=== PATIENT | female | born 1980 | race Hispanic/Latino ===

== ENCOUNTER → 2019-09-15 | Outpatient (CLI) | payer OTHER ==
[~2019-09-15] MED LIST: COLA100C5 PO; IBUP-1114 PO; VITA500079 PO; ZOLO25TA PO; [UNRECOGNIZED DRUG - OTHER] PO
== END ==
LOC: M PLALAB 10:49
PROVIDERS: ATTEND Surgery
DX: Z13.71 Encounter for nonprocreative screening for genetic disease carrier status (principal)

== ENCOUNTER 2019-10-26 06:05 | Day surgery (SDC) | payer OTHER ==
[~2019-10-26] VITALS: Ht 175.3 cm; Wt 98.4 kg
[~2019-10-26 06:05] MED LIST changes: +CETI10CA13 PO; +LIDOCAINE 1% MDV 20ML VIAL SQ PRN; +RIZA5TAB PO
[2019-10-26 06:39] LABS: HEMATOCRIT 40.3 % (36.0-47.0); HEMOGLOBIN 13.6 g/dl (12.0-15.5); MEAN CORPUSCULAR HEMOGLOBIN 30.4 pg (27.0-33.0); MEAN CORPUSCULAR HGB CONC 33.7 g/dl (32.0-36.5); PLATELET COUNT, AUTOMATED 312 10^3/uL (150-450); RED BLOOD COUNT 4.48 10^6/uL (4.00-5.40); WHITE BLOOD COUNT 8.6 10^3/uL (4.0-10.0)
[2019-10-26] MEDS ORDERED: SUGAMMADEX SODIUM 500 MG/5 ML VIAL (BRIDION) As Ordered ONE (06:46)
[2019-10-26] MEDS ORDERED: LIDOCAINE 2% INJ 100 MG/5 ML SYRINGE As Ordered ONE (06:46)
[2019-10-26] MEDS ORDERED: ROCURONIUM BROMIDE 50 MG/5 ML VIAL As Ordered ONE ×2 (06:46→07:58)
[2019-10-26] MEDS ORDERED: propofoL 200 MG/20 ML VIAL As Ordered ONE (06:46)
[2019-10-26] MEDS ORDERED: fentaNYL 100 MCG/2 ML INJECTION (J3010) As Ordered ONE ×2 (06:47→08:00)
[2019-10-26] MEDS ORDERED: MIDAZOLAM INJ 2MG/2ML VIAL (J2250 PER 1MG) As Ordered ONE (06:47)
[2019-10-26] MEDS ORDERED: dexameTHASONE 4 MG/ML 1ML VIAL (J1100 PER 1MG) As Ordered ONE (06:47)
[2019-10-26] MEDS ORDERED: KETOROLAC 60MG 2ML VIAL As Ordered ONE (06:48)
[2019-10-26] MEDS ORDERED: ONDANSETRON 4MG/2ML VIAL As Ordered ONE (06:48)
[2019-10-26 06:57] LABS: HCG, SERUM QUALITATIVE NEGATIVE (NEGATIVE)
[2019-10-26] MEDS ORDERED: ceFAZolin SOD 2 GM in IV 1 EA IV ONE (07:00)
[2019-10-26] MEDS ORDERED: LR 1,000 ML IV ONE (07:00)
[2019-10-26] MEDS ORDERED: BUPIVACAINE/EPIN 0.25% 30 ML VIAL As Ordered ONE (07:23)
[2019-10-26] MEDS ORDERED: SILVER NITRATE APPLICATOR As Ordered ONE (07:23)
[2019-10-26] MEDS ORDERED: ACETAMINOPHEN 1000MG 100ML IV BTL (OFIRMEV) (J0131 PER 10MG) As Ordered ONE (07:59)
[2019-10-26] MEDS ORDERED: HYDROmorphone HCL 2 MG/ML 1ML VIAL (J1170) As Ordered ONE (08:30)
[2019-10-26] MEDS ORDERED: SILVER SULFADIAZINE 1% CR 50 GM JAR As Ordered ONE (09:03)
[2019-10-26] MEDS ORDERED: HYDROMORPHONE HCL 0.5 MG/ 0.5 ML SYRINGE (J1170 PER 1) IV PRN (09:45)
[2019-10-26] MEDS ORDERED: fentaNYL 100 MCG/2 ML INJECTION (J3010) IV PRN (09:45)
[2019-10-26] MEDS ORDERED: oxyCODONE 5MG TAB PO PRN (09:45)
[2019-10-26] MEDS ORDERED: LR 1,000 ML IV SCH (09:45)
[2019-10-26] MEDS ORDERED: ONDANSETRON 4MG/2ML VIAL IV PRN ×2 (09:45→11:30)
[2019-10-26 13:17] VITALS: BP 107/64
--- NOTE | 2019-10-26 17:18 | POST-OPPD ---
Postoperative Procedure Note Date Of Procedure: Oct 26, 2019 PREOPERATIVE DIAGNOSIS: 1. Satisfied parity 2. left labia minora hypertrophy 3. heavy menstrual bleeding POSTOPERATIVE DIAGNOSIS: 1. Satisfied parity 2. subserosal uterine fibroid 3. omental adhesions PROCEDURE: 1. laparoscopic bilateral salpinjectomy 2. Mirena IUD placement 3. left labia plasty SURGEON: pancho red do NIGHTMAN: Jerry Thibodeaux MD ANESTHESIA: generak SPECIMENS: bilateral fallopian tubes, IUD, left labia minora ESTIMATED BLOOD LOSS: 10 REPLACED: 1200cc LR DRAINS: 200cc urine COMPLICATIONS: none POSTOPERATIVE CONDITION: stable Laparoscopic findings: Anterior scaring of bladder to uterus noted. Uterus w ith subserosal right posterior fundal fibroid that appeared to be hypervascular. Normal appearing bilateral ovaries and fallopian tubes. Anterior cul-de-sac without lesion. Posterior cul-de-sac without lesion. Omental adhesions noted to anterior abdominal wall and posterior left side of uterus. Liver edge normal appearing. Description of procedure: The risks, benefits, indications and alternatives of the procedure were reviewed with the patient and informed written consent was obtained. The patient was taken to the operating room with IV running. She was placed under general anesthesia with endotracheal tube. Arms tucked. Patient placed in lithotomy. The abdomen, vagina and perineum were prepped and draped in the usual sterile fashion. Worrell inserted. Moist sponge stick placed vaginally for uterine manipulation. Small incision made in umbilicus. Veres needle introduced. Could not confirm intra-abdominal placement saline drop test. Attempt at direct entry with clear view port unsuccessful. Gibbons point located. Five mm trocar introduced under direct visualization. Abdomen insufflated with CO2. Surveys shows no bowel injury or bleeding. An 8mm ports placed at the umbilicus under direct visualization. One 5mm trocar placed at left lower abdomen with direct visualization. Findings as above. Ligasure device used to remove omental adhesions to the anterior abdominal wall for visualization of the the pelvis. Ligasure device used to remove bilateral fallopian tubes. Surgical area inspected for hemostasis. Abdomen desuflated. Camera and instruments removed from abdomen. Incision sites closed with 4-O monocryl and dermabond. Sponge stick removed from vagina. Speculum placed. Cervix visualized. No IUD string visualized. Anterior cervix grasped with single tooth tennaculum. [place] used to find IUD string inside cervix. Mirena IUD removed whole. Cervix sound to 10cm. Mirena IUD string inserted per manufacture protocol. String cut to 4cm. Speculum removed. Vulva examined and left labia minora enlarged. Wedge section marked on labia. Local anesthetic injected along planned incision sites. Excess labia removed using iris scissors. Exposed edges approximated with interrupted sutures using 4-O vicryl. Incision closed in subcuticular fashion with 6-O vicryl. Worrell removed. Count correct x 2. Patient was taken out of OR in stable condition. PANCHO RED DO Oct 26, 2019 12:58
--- NOTE | 2019-10-27 14:48 | ECGEPIP ---
[facility] Test Date: 2019-10-26 Pat Name: ELZIABETH CRUZ Department: Room: - Gender: Female Balance Weigher: FLORIDALMA : 1980 Requested By: Edwin Rosado Order Number: [id number] Reading MD: Gideon Ibarra Measurements Intervals [place] Rate: 68 P: 32 DE: 162 QRS: 14 QRSD: 93 T: 31 QT: 416 QTc: 444 Interpretive Statements SINUS RHYTHM WITH SINUS ARRHYTHMIA Marginal T wave flattening nonspecific No prior tracing for comparison. Clincal correlation advised Electronically Signed on 10-27-2019 14:48:04 EDT by Gideon Ibarra
== END 2019-10-26 13:20 | disposition home or self-care (01) ==
LOC: M SDC 06:05
PROVIDERS: ATTEND Obstetrics & Gynecology
DX: N90.69 Other specified hypertrophy of vulva (principal); Z30.2 Encounter for sterilization; Z30.433 Encounter for removal and reinsertion of intrauterine contraceptive device; D25.2 Subserosal leiomyoma of uterus; K66.0 Peritoneal adhesions (postprocedural) (postinfection); F41.9 Anxiety disorder, unspecified; F32.9 Major depressive disorder, single episode, unspecified; F43.10 Post-traumatic stress disorder, unspecified; G43.909 Migraine, unspecified, not intractable, without status migrainosus; G47.30 Sleep apnea, unspecified; Z79.899 Other long term (current) drug therapy
CPT/HCPCS: 36415; 56620; 58300; 58301; 58661; 84703; 85027; 86850; 86900; 86901; 88300; 88302; 88305; 93005; J0131; J0690; J1100; J1170; J1885; J2250; J2405; J3010; J7298

== ENCOUNTER → 2020-02-02 | Outpatient (CLI) | payer OTHER ==
[~2020-02-02] MED LIST changes: -LIDOCAINE 1% MDV 20ML VIAL SQ PRN
[2020-02-02 14:07] LABS: BASO # 0.1 10^3/uL (0.0-0.2); BASO % 0.7 % (0.0-1.0); EOS # 0.1 10^3/uL (0.0-0.5); EOS % 1.1 % (0.0-3.0); HEMATOCRIT 43.5 % (36.0-47.0); HEMOGLOBIN 14.2 g/dl (12.0-15.5); LYMPH # 2.5 10^3/uL (1.5-5.0); LYMPH % 34.3 % (24.0-44.0); MEAN CORPUSCULAR HEMOGLOBIN 29.3 pg (27.0-33.0); MEAN CORPUSCULAR HGB CONC 32.6 g/dl (32.0-36.5); MEAN CORPUSCULAR VOLUME 89.7 fl (80.0-96.0); MONO # 0.5 10^3/uL (0.0-0.8); MONO % 7.1 % (0.0-5.0); NEUTROPHILS # 4.1 10^3/uL (1.5-8.5); NEUTROPHILS % 56.5 % (36.0-66.0); PLATELET COUNT, AUTOMATED 279 10^3/uL (150-450); RED BLOOD COUNT 4.85 10^6/uL (4.00-5.40); WHITE BLOOD COUNT 7.2 10^3/uL (4.0-10.0)
[2020-02-02 14:32] LABS: C REACTIVE PROTEIN QUANTITATIV < 0.30 MG/DL (0.00-0.30); RHEUMATOID FACTOR QUANT < 10.0 IU/ML (<15.0)
[2020-02-02 14:38] LABS: ERYTHROCYTE SEDIMENTATION RATE 5 mm/hr (0-20)
[2020-02-06 20:41] LABS: ANTINUCLEAR ANTIBODIES DIRECT Negative (Negative); Lyme Disease IgG/IgM Antibodie <0.91 ISR (0.00-0.90); Lyme Disease IgM Ab Quantitati <0.80 index (0.00-0.79)
== END ==
LOC: M PLALAB 09:25
PROVIDERS: ATTEND Orthopaedic Surgery
DX: M17.12 Unilateral primary osteoarthritis, left knee (principal)

== ENCOUNTER → 2020-03-15 | Outpatient (CLI) | payer OTHER ==
--- NOTE | 2020-03-15 09:22 | REPMRS ---
Patient History The patient states she had a clinical breast exam in 09/30 The patient states she has not had a clinical breast exam in over a year. Family history of ovarian cancer at age 50 or over in maternal aunt, breast cancer at age 50 or over in paternal grandmother. Implants in both breasts, 2009. Taking hormonal contraceptives for 10 years. Digital Woman Screen Mammo: March 15, 2020 - Exam #: [id number] Bilateral CC and MLO view(s) were taken. Technologist: Terra Howe, Technologist No prior studies available for comparison. FINDINGS: There are scattered fibroglandular densities. The visualized implant margins are smooth. Breast parenchymal density pattern is essentially symmetric. No dominant mass, grouped microcalcification, or architectural distortion is evident on either side. 3-D tomosynthesis shows no additional findings. Assessment: BI-RADS/ACR category 2 mammogram. Benign Findings. Recommendation Routine screening mammogram of both breasts in 1 year (for women over age 40). This patient's [facility] Lifetime Breast Cancer RIsk is estimated at 16.4 %. This mammogram was interpreted with the aid of an FDA-approved computer-aided dectection system. Electronically Signed By: Christiano Powell MD 03/15/20 1058
== END ==
LOC: M WHC 07:00
PROVIDERS: ATTEND Emergency Medicine
DX: Z12.31 Encounter for screening mammogram for malignant neoplasm of breast (principal); Z80.41 Family history of malignant neoplasm of ovary; Z80.3 Family history of malignant neoplasm of breast; Z98.82 Breast implant status

== ENCOUNTER → 2020-10-30 | Outpatient (CLI) | payer OTHER ==
[~2020-10-30] MED LIST changes: -RIZA5TAB PO; +RIZA5TAB2 PO
--- NOTE | 2020-11-01 00:05 | ECWPNPC ---
PATIENT NAME: ELIZABETH CRUZ : 1980 GENDER: FEMALE VISIT DATE: 10/30/2020 DISCHARGE DATE: 10/30/20909 VISIT LOCKED DATE TIME: PHYSICIAN: RAYNE GAYLE RESOURCE: RAYNE GAYLE REASON FOR APPOINTMENT 1. OCCIPITAL NEURALGIA HISTORY OF PRESENT ILLNESS GENERAL: HPI 40-YEAR-OLD FEMALE IN FOR INITIAL PAIN CONSULT REGARDING OCCIPITAL NEURALGIA. PATIENT STATES THE PAIN HAS BEEN ALMOST CONSTANT FOR THE PAST FEW MONTHS. SHE RATES HER PAIN CURRENTLY AT A 9 OUT OF 10 AND DESCRIBES IT BURNING, CONTINUOUS, AND THROBBING. WHEN ASKED PATIENT ADMITS THE PAIN STARTS IN THE BACK OF HER HEAD AND SHOOTS FORWARD. SHE DENIES MEDICATIONS AND/OR INJECTIONS THAT HAVE HELPED IN THE PAST.. - -. FALL RISK SCREENING: SCREENING : NO FALLS REPORTED IN THE LAST YEAR. PAIN SCREENING: PATIENT HAS A COMPLAINT OF ACUTE OR CHRONIC PAIN :YES LOCATION OF PAIN:HEAD INTENSITY OF PAIN (SCALE OF 1 TO 10):9 WHAT DOES YOUR PAIN FEEL LIKE:BURNING, CONTINOUS, THROBBING DURATION:CONTINOUS, CONSTANT, AWAKENS FROM SLEEP PAIN IS INCREASED BY:ACTIVITIES, PROLONGED STANDING PAIN IS DECREASED BY:USE OF PAIN MEDICATIONS, SITTING PATIENT STATES THE PAIN IS "HIT OR MISS". NURSING NOTE: - -. PAIN CENTER INTAKE QUESTIONS: DO YOU HAVE A HISTORY OF MRSA? :NO DO YOU TAKE A BLOOD THINNERS? :NO DO YOU HAVE ANY BLEEDING DISORDERS? :NO ANY NEW NUMBNESS OR WEAKNESS IN YOUR LEGS OR ARMS? :YES BILATERAL WEAKNESS IN ARMS WITH TINGLING IN FINGETIPS. PATIENT STATES HER "HANDS GO NUMB." ANY PACEMAKER,DEFIBRILLATOR, OR DORSAL COLUMN STIMULATOR? :NO DO YOU HAVE ANY RASHES OR OPEN SORES? :NO ARE YOU ALLERGIC TO IV DYE? :NO ARE YOU DIABETIC? :NO PREDIABETIC ANY NEW PROBLEMS WITH YOUR MEDICATIONS? :NO HAVE YOU RECEIVED A VACCINE IN THE PAST 30 DAYS? :NO DO YOU PLAN TO RECEIVE A VACCINE IN THE NEXT 21 DAYS? :NO DO YOU NEED ANY PRESCRIPTION? :NO DO YOU TAKE ANY IMMUNOSUPPRESSIVE MEDICATIONS? :NO IS THERE A CHANCE YOU COULD BE ? :NO ARE YOU BREAST FEEDING? :NO CURRENT MEDICATIONS TAKING ERGOCALCIFEROL 1.25 MG (42011 UT) CAPSULE 1 CAPSULE ORALLY WEEKLY TAKING ESCITALOPRAM OXALATE 20 MG TABLET ONE HALF TABLET ORALLY ONCE A DAY TAKING SUMATRIPTAN SUCCINATE 50 MG TABLET 1 TABLET AT LEAST 2 HOURS BETWEEN DOSES NEEDED ORALLY TWICE A DAY TAKING TOPIRAMATE 100 MG TABLET ONE HALF TABLET ORALLY BEFORE BEDTIME TAKING TRAZODONE HCL 100 MG TABLET 1 TABLET AT BEDTIME ORALLY ONCE A DAY TAKING VITAMIN B COMPLEX - TABLET 1 CAP ORALLY BEFORE BREAKFAST TAKING MAGNESIUM 300 MG CAPSULE 1 CAPSULE WITH A MEAL ORALLY ONCE A DAY TAKING PREGABALIN 25 MG CAPSULE 1 CAPSULE ORALLY ONCE A DAY TAKING MIRENA (52 MG) 20 MCG/24HR INTRAUTERINE DEVICE DIRECTED INTRAUTERINE UNKNOWN ZOLOFT 100 MG TABLET 1 TABLET ORALLY ONCE A DAY MEDICATION LIST REVIEWED AND RECONCILED WITH THE PATIENT PAST MEDICAL HISTORY ANXIETY DEPRESSION MIGRAINE PTSD CHRONIC CYSTITIS SLEEP APNEA ALLERGIES N.K.D.A. SURGICAL HISTORY BREAST IMPLANTS 2010 CESCTION JEFF MACK 2009 FAMILY HISTORY FATHER: ALIVE, DIAGNOSED WITH HYPERTENSION, DIABETES MOTHER: ALIVE 3 BROTHER(S) , 4 SISTER(S) - HEALTHY. 2 SON(S) - HEALTHY. SOCIAL HISTORY GENERAL: TOBACCO USE ARE YOU A:NONSMOKER LATEX QUESTIONNAIRE LATEX ALLERGY : HAVE YOU EVER DEVELOPED ANY TYPE OF REACTION AFTER HANDLING LATEX PRODUCTS SUCH RUBBER GLOVES, CONDOMS, DIAPHRAGMS, BALLOONS, SOCKS, OR UNDERWEAR?NO LATEX ALLERGY : HAVE YOU EVER DEVELOPED ANY TYPE OF REACTION DURING OR AFTER DENTAL APPOINTMENT, VAGINAL/RECTAL EXAMINATION, SURGICAL PROCEDURE, OR ANY OTHER EXPOSURE?NO LATEX RISK : HAVE YOU EVER HAD ANY DIFFICULTY BREATHING OR HIVES AFTER EATING OR HANDLING ANY FRUITS, OR VEGETABLES; SUCH KIWI, BANANAS, STONE FRUITS, OR CHESTNUTSNO LATEX RISK : DO YOU HAVE A PREVIOUS PERSONAL HISTORY OF MORE THAN NINE SURGERIES, SPINA BIFIDA, OR REPEATED CATHERIZATIONS? NO LATEX RISK : ARE YOU FREQUENTLY EXPOSED TO LATEX PRODUCTS IN YOUR OCCUPATION?NO DATE ASKED : 10/30/2020 ALCOHOL USE: OCCASIONAL. RECREATIONAL DRUG USE DRUG USE?NO CAFFEINE CAFFEINE USE?YES SEXUAL HX HAD SEX IN THE LAST 12 MONTHS (VAGINAL, ORAL, OR ANAL)?YES WITHMEN ONLY PREVENTION STRATEGIES DISCUSSED:CONDOMS USE PROTECTION?YES HOW OFTEN?ALL OF THE TIME HAVE YOU EVER HAD AN STD?YES OTHER?NO HERPES?NO SYPHILIS?NO GC?YES CHLAMYDIA?YES LANGUAGE LANGUAGES SPOKEN:BOTH CHINESE AND GREENLANDIC LEARNING BARRIERS / SPECIAL NEEDS BARRIERS TO LEARNING?NO HEARING IMPAIRED?YES SOME LOSS BILATERALLY VISION IMPAIRED?YES :CORRECTIVE LENSES COGNITIVELY IMPAIRED?NO READINESS TO LEARN?YES LEARNING PREFERENCES?NO LEARNING CAPABILITIES PRESENT?YES EMOTIONAL BARRIERS?YES ANXIETY, DEPRESSION, PTSD SPECIAL DEVICES?NO GRAINER MACHINE NEEDED?NO HOSPITALIZATION/MAJOR DIAGNOSTIC PROCEDURE SURGERY RELATED REVIEW OF SYSTEMS CONSTITUTIONAL: ANY RECENT FEVER NO . CHILLS NO . WEIGHT CHANGE OF UNKNOWN REASONS NO . MUSCULOSKELETAL: ANY UNUSUAL JOINT PAIN OR SWELLING NOT MENTIONED NO . SYSTEMIC LUPUS NO . ANY NEUROMUSCULAR DISORDER NOT MENTIONED NO . LYME DISEASE NO . GASTROENTEROLOGY: ANY NEW CHANGE IN BOWEL CONTROL? NO . HISTORY OF LIVER DISORDER NOT MENTIONED NO . HISTORY OF UNUSUAL ABDOMINAL PAIN OR CRAMPING NOT MENTIONED NO . NO CONSTIPATION. GENITOURINARY: ANY NEW CHANGE IN BLADDER CONTROL? NO . ANY RENAL/KIDNEY CONDITON NOT MENTIONED NO . NEUROLOGY: HISTORY OF TBI NOT MENTIONED NO . OTHER NEW NUMBNESS OR PAIN PATTERNS NOT MENTIONED NO . NEW ONSET DIZZINESS OR NEUROLOGICAL CHANGES NOT MENTIONED NO . HISTORY OF SEVERE HEADACHES NOT MENTIONED NO . HISTORY OF STROKE OR NEUROLOGICAL DISORDER NOT MENTIONED NO . CARDIOLOGY: HEART SURGERY NO . CONGESTIVE HEART FAILURE/FLUID OVERLOAD NOT MENTIONED NO . HISTORY OF CHEST PAIN,IRREGULAR HEART BEAT NOT MENTIONED NO . RESPIRATORY: SHORTNESS OF BREATH ON EXERTION, WHEEZES, UNUSUAL COUGH NOT MENTIONED NO . ENDOCRINOLOGY: ADRENAL GLAND OR THYROID DISORDERS NOT MENTIONED NO . UNUSUAL URINATION, DIZZINESS OR LETHARGY NOT MENTIONED NO . VITAL SIGNS WT 231.6 LBS, HT 69 IN, BMI 34.20 INDEX, BP 126/86 MM HG, HR 79 /MIN, RR 18 /MIN, TEMP 97.8 F, OXYGEN SAT % 97%, SAFE IN ENV? (Y/N) YES, NA INITIALS IL 08:46, REVIEWED BY: CARMENZA HUGHES MA. EXAMINATION GENERAL EXAMINATION: GENERALNO ACUTE DISTRESS, WELL NOURISHED AND HYDRATED. PSYCHAPPROPRIATE MOOD AND AFFECT . HEENT:POINT TENDER ALONG SCALP, SURROUNDING SKIN SHOWS NO ERYTHEMA, ECCHYMOSIS, INCREASED WARMTH, AND/OR SKIN OPTIONS NOTED.. LUNGS:CLEAR TO AUSCULTATION BILATERALLY, NO WHEEZES, RHONCHI, RALES. HEART:NO MURMURS, REGULAR RATE AND RHYTHM. ASSESSMENTS OCCIPITAL NEURALGIA - M54.81 (PRIMARY) TREATMENT OCCIPITAL NEURALGIA INCREASE PREGABALIN CAPSULE, 75 MG, 1 CAPSULE, ORALLY, TWICE A DAY, 30 DAYS, 60 CAPSULE NOTES: 40-YEAR-OLD FEMALE IN FOR INITIAL PAIN CONSULT REGARDING OCCIPITAL NEURALGIA. GIVEN PRESENTING SYMPTOMS AND RESULTS OF PHYSICAL EXAMINATION RECOMMEND INCREASING LYRICA TO 75 MG TWICE DAILY WITH FOLLOW-UP IN 1 MONTH TO DETERMINE EFFICACY OF TREATMENT. PATIENT HAS EXPRESSED UNDERSTANDING OF AND WAS IN AGREEMENT WITH TREATMENT PLAN. GIVEN TIME TO ASK QUESTIONS AND EXPRESS CONCERNS. ISTOP REGISTRY REVIEWED AND DEMONSTRATES COMPLLIANCE. (REF # [id number] ). PROCEDURE CODES FA211 ESTABILISHED PATIENT [facility] FACILITY CHARGE DISPOSITION & COMMUNICATION FOLLOW UP 4 WEEKS (REASON: MEDICATION INCREASE) ELECTRONICALLY SIGNED BY GRACE SHEA ON 10/31/2020 AT 08:33 AM EDT DISCLAIMER : THIS IS A VISIT SUMMARY EXTRACTED FROM THE [employer] CHART. IT IS NOT A COPY OF THE [employer] PROGRESS NOTE. MTDD
== END ==
LOC: M PAIN 08:30
PROVIDERS: ATTEND Family Medicine
DX: M54.81 Occipital neuralgia (principal); F41.9 Anxiety disorder, unspecified; F32.9 Major depressive disorder, single episode, unspecified; G43.909 Migraine, unspecified, not intractable, without status migrainosus; F43.10 Post-traumatic stress disorder, unspecified; N30.20 Other chronic cystitis without hematuria; G47.30 Sleep apnea, unspecified; Z79.899 Other long term (current) drug therapy

== ENCOUNTER → 2020-11-30 | Outpatient (CLI) | payer OTHER ==
--- NOTE | 2020-12-02 23:17 | ECWPNPC ---
PATIENT NAME: ELIZABETH CRUZ : 1980 GENDER: FEMALE VISIT DATE: 11/30/2020 DISCHARGE DATE: 11/30/20 1119 VISIT LOCKED DATE TIME: PHYSICIAN: JOSH BLANCHARD MD RESOURCE: JOSH BLANCHARD MD REASON FOR APPOINTMENT 1. MEDICATION INCREASE HISTORY OF PRESENT ILLNESS DEPRESSION SCREENING: PHQ-2 (2015 EDITION) LITTLE INTEREST OR PLEASURE IN DOING THINGS?NOT AT ALL FEELING DOWN, DEPRESSED, OR HOPELESS?SEVERAL DAYS TOTAL SCORE1 GENERAL: 40-YEAR-OLD FEMALE PATIENT WITH A HISTORY OF CHRONIC NECK PAIN. SHE HAS BEEN SUFFERING FROM THIS FOR APPROXIMATELY 2 YEARS. THE PATIENT DESCRIBES THE PAIN BURNING, ACHING AND TENDER WITH A PAIN SCORE RANGING FROM 6-10/10. THE PAIN IS MAINLY LOCATED IN THE NECK WITH RADIATION DOWN THE ARMS. SHE HAS TRIED DIFFERENT MEDICATIONS TO CONTROL THE PAIN BUT THE PAIN PERSISTS. SHE WAS A SOLIDER. FALL RISK SCREENING: SCREENING : NO FALLS REPORTED IN THE LAST YEAR. PAIN SCREENING: PATIENT HAS A COMPLAINT OF ACUTE OR CHRONIC PAIN :YES LOCATION OF PAIN:NECK, RIGHT SHOULDER, BOTH SHOULDERS DOWN RIGHT ARM & HAND INTENSITY OF PAIN (SCALE OF 1 TO 10):8 WHAT DOES YOUR PAIN FEEL LIKE:ACHING, BURNING DURATION:CONTINOUS, CONSTANT, STEADY, ALL DAY PAIN IS INCREASED BY:ACTIVITIES LIFTING WEIGHTS & GRIPPING PAIN IS DECREASED BY: PATIENT REPORTS NO RELIEF WITH INTERVENTIONS. NURSING NOTE: -. PAIN CENTER INTAKE QUESTIONS: DO YOU HAVE A HISTORY OF MRSA? :NO DO YOU TAKE A BLOOD THINNERS? :NO DO YOU HAVE ANY BLEEDING DISORDERS? :NO ANY NEW NUMBNESS OR WEAKNESS IN YOUR LEGS OR ARMS? :YES BILATERAL WEAKNESS IN ARMS WITH TINGLING IN FINGETIPS. PATIENT STATES HER "HANDS GO NUMB." ANY PACEMAKER,DEFIBRILLATOR, OR DORSAL COLUMN STIMULATOR? :NO DO YOU HAVE ANY RASHES OR OPEN SORES? :NO ARE YOU ALLERGIC TO IV DYE? :NO ARE YOU DIABETIC? :NO PREDIABETIC ANY NEW PROBLEMS WITH YOUR MEDICATIONS? :YES VIOLET NOT WORKING HAVE YOU RECEIVED A VACCINE IN THE PAST 30 DAYS? :NO DO YOU PLAN TO RECEIVE A VACCINE IN THE NEXT 21 DAYS? :NO DO YOU NEED ANY PRESCRIPTION? :NO DO YOU TAKE ANY IMMUNOSUPPRESSIVE MEDICATIONS? :NO IS THERE A CHANCE YOU COULD BE ? :NO ARE YOU BREAST FEEDING? :NO CURRENT MEDICATIONS TAKING LEXAPRO 20 MG TABLET 1 TABLET ORALLY ONCE A DAY TAKING ERGOCALCIFEROL 1.25 MG (72917 UT) CAPSULE 1 CAPSULE ORALLY WEEKLY TAKING ESCITALOPRAM OXALATE 20 MG TABLET ONE HALF TABLET ORALLY ONCE A DAY TAKING SUMATRIPTAN SUCCINATE 50 MG TABLET 1 TABLET AT LEAST 2 HOURS BETWEEN DOSES NEEDED ORALLY TWICE A DAY TAKING TOPIRAMATE 100 MG TABLET ONE HALF TABLET ORALLY BEFORE BEDTIME TAKING TRAZODONE HCL 100 MG TABLET 1 TABLET AT BEDTIME ORALLY ONCE A DAY TAKING VITAMIN B COMPLEX - TABLET 1 CAP ORALLY BEFORE BREAKFAST TAKING MAGNESIUM 300 MG CAPSULE 1 CAPSULE WITH A MEAL ORALLY ONCE A DAY TAKING MIRENA (52 MG) 20 MCG/24HR INTRAUTERINE DEVICE DIRECTED INTRAUTERINE TAKING PREGABALIN 75 MG CAPSULE 1 CAPSULE ORALLY TWICE A DAY UNKNOWN ZOLOFT 100 MG TABLET 1 TABLET ORALLY ONCE A DAY MEDICATION LIST REVIEWED AND RECONCILED WITH THE PATIENT PAST MEDICAL HISTORY ANXIETY DEPRESSION MIGRAINE PTSD CHRONIC CYSTITIS SLEEP APNEA ALLERGIES N.K.D.A. SOCIAL HISTORY GENERAL: TOBACCO USE ARE YOU A:NONSMOKER LATEX QUESTIONNAIRE LATEX ALLERGY : HAVE YOU EVER DEVELOPED ANY TYPE OF REACTION AFTER HANDLING LATEX PRODUCTS SUCH RUBBER GLOVES, CONDOMS, DIAPHRAGMS, BALLOONS, SOCKS, OR UNDERWEAR?NO LATEX ALLERGY : HAVE YOU EVER DEVELOPED ANY TYPE OF REACTION DURING OR AFTER DENTAL APPOINTMENT, VAGINAL/RECTAL EXAMINATION, SURGICAL PROCEDURE, OR ANY OTHER EXPOSURE?NO LATEX RISK : HAVE YOU EVER HAD ANY DIFFICULTY BREATHING OR HIVES AFTER EATING OR HANDLING ANY FRUITS, OR VEGETABLES; SUCH KIWI, BANANAS, STONE FRUITS, OR CHESTNUTSNO LATEX RISK : DO YOU HAVE A PREVIOUS PERSONAL HISTORY OF MORE THAN NINE SURGERIES, SPINA BIFIDA, OR REPEATED CATHERIZATIONS? NO LATEX RISK : ARE YOU FREQUENTLY EXPOSED TO LATEX PRODUCTS IN YOUR OCCUPATION?NO DATE ASKED : 11/30/2020 ALCOHOL USE: OCCASIONAL. RECREATIONAL DRUG USE DRUG USE?NO CAFFEINE CAFFEINE USE?YES SEXUAL HX HAD SEX IN THE LAST 12 MONTHS (VAGINAL, ORAL, OR ANAL)?YES WITHMEN ONLY USE PROTECTION?YES HOW OFTEN?ALL OF THE TIME PREVENTION STRATEGIES DISCUSSED:CONDOMS HAVE YOU EVER HAD AN STD?YES CHLAMYDIA?YES GC?YES SYPHILIS?NO HERPES?NO OTHER?NO LANGUAGE LANGUAGES SPOKEN:BOTH MOLDOVAN AND ESTONIAN LEARNING BARRIERS / SPECIAL NEEDS CHANGE FROM LAST VISIT?NO BARRIERS TO LEARNING?NO HEARING IMPAIRED?YES SOME LOSS BILATERALLY VISION IMPAIRED?YES :CORRECTIVE LENSES COGNITIVELY IMPAIRED?NO READINESS TO LEARN?YES LEARNING PREFERENCES?NO LEARNING CAPABILITIES PRESENT?YES EMOTIONAL BARRIERS?YES ANXIETY, DEPRESSION, PTSD SPECIAL DEVICES?NO EXERCISE SCIENCE INSTRUCTOR NEEDED?NO REVIEW OF SYSTEMS CONSTITUTIONAL: ANY RECENT FEVER NO . CHILLS NO . WEIGHT CHANGE OF UNKNOWN REASONS NO . GASTROENTEROLOGY: NEW UNEXPLAINABLE CHANGES IN BOWEL CONTROL NO . CONSTIPATION NO . GENITOURINARY: ANY NEW CHANGE IN BLADDER CONTROL? NO . NEUROLOGY: NEW ONSET DIZZINESS OR NEUROLOGICAL CHANGES NOT MENTIONED NO . NEW NUMBNESS OR PAIN PATTERNS NOT MENTIONED AND PERTINENT TO TODAY'S VISIT NO . CARDIOLOGY: NEW CHEST PRESSURE NO . PATIENT DENIES NO . RESPIRATORY: UNEXPLAINABLE COUGH NO . NEW SHORTNESS OF BREATH NO . VITAL SIGNS WT 227.4 LBS, WT-KG 103.15 KG, HT 69 IN, BMI 33.58 INDEX, BP 137/97 MM HG, HR 71 /MIN, RR 18 /MIN, TEMP 97.4 F, OXYGEN SAT % 99%, SAFE IN ENV? (Y/N) YES, NA INITIALS AW 0939, REVIEWED BY: APA. MATTHEW RN. EXAMINATION GENERAL EXAMINATION: THE PATIENT IS ALERT, ORIENTED TIMES THREE AND COOPERATIVE. THERE IS TENDERNESS IN THE NECK WITH PRESENCE OF TRIGGER POINTS AND BANDS OF TISSUE WITH RESTRICTION OF MOVEMENT. INCREASING PAIN IN THE CERVICAL FACET JOINTS WITH EXTENSION AND LATERAL ROTATION OF THE NECK. 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 GELLER. WE ARE GOING TO REQUEST AUTHORIZATION FOR TRIGGER POINT INJECTIONS BILATERAL NECK AND BILATERAL SHOULDER. I WILL USE STEROIDS. DEPENDING ON THE RESULTS, FURTHER RECOMMENDATIONS WILL BE MADE. SHE IS GOING TO BE DOING A CERVICAL MRI SOON. I WANT TO SEE THOSE RESULTS. SHE IS GOING TO STOP THE LYRICA. SHE WILL USE 1 TABLET A DAY FOR 5 DAYS AND THEN STOP. I GAVE HER TIZANIDINE TO START TONIGHT. I WILL ALSO GIVE HER CELEBREX. THE PATIENT REPORTS UNDERSTANDING AND AGREES WITH THE PLAN. I, JOSÉ MIGUEL BARNARD, DOCUMENTED THE ABOVE INFORMATION ACTING A SCRIBE FOR DR. BLANCHARD. I HAVE REVIEWED THE ABOVE DOCUMENT, WRITTEN BY JOSÉ MIGUEL BARNARD, LINSEED OIL BOILER, AND I VERIFY THAT IT IS ACCURATE. OTHERS START TIZANIDINE HCL TABLET, 2 MG, 1 TABLET NEEDED, ORALLY, BID FOR SPASMS AND PAIN MDD2, 30 DAYS, 60, REFILLS 1 START CELEBREX CAPSULE, 200 MG, 1 CAPSULE WITH FOOD, ORALLY, BID, 30 DAY(S), 60 CAPSULE, REFILLS 1 VISIT CODES PROCEDURE CODES FA211 ESTABILISHED PATIENT [facility] CHARGE 17036 OFFICE/OUTPATIENT VISIT EST DISPOSITION & COMMUNICATION FOLLOW UP REQUEST AUTH FOR TRIGGER POINT INJECTIONS BILATERAL NECK AND BILATERAL SHOULDER (REASON: REQUEST AUTH FOR TRIGGER POINT INJECTIONS BILATERAL NECK AND BILATERAL SHOULDER) ELECTRONICALLY SIGNED BY JOSH BLANCHARD MD, ON 12/02/2020 AT 08:27 PM EDT DISCLAIMER : THIS IS A VISIT SUMMARY EXTRACTED FROM THE [employer] CHART. IT IS NOT A COPY OF THE [employer] PROGRESS NOTE. LEIDY
== END ==
LOC: M PAIN 09:45
PROVIDERS: ATTEND Anesthesiology
DX: M79.10 Myalgia, unspecified site (principal); M79.18 Myalgia, other site; M47.812 Spondylosis without myelopathy or radiculopathy, cervical region; F41.9 Anxiety disorder, unspecified; F32.9 Major depressive disorder, single episode, unspecified; G43.909 Migraine, unspecified, not intractable, without status migrainosus; F43.10 Post-traumatic stress disorder, unspecified; G47.30 Sleep apnea, unspecified; N30.20 Other chronic cystitis without hematuria; Z79.899 Other long term (current) drug therapy

== ENCOUNTER → 2020-12-26 | Outpatient (CLI) | payer OTHER | LOC: M LABSMTC 09:30 | PROVIDERS: ATTEND Anesthesiology | DX: Z11.52 Encounter for screening for COVID-19 (principal) ==

== ENCOUNTER → 2020-12-31 | Outpatient (CLI) | payer OTHER ==
[~2020-12-31] MED LIST changes: +BUPIVACAINE HCL 0.25% 10ML VIAL As Ordered ONE; +BUPIVACAINE HCL 0.25% 30ML VIAL As Ordered ONE; +NORCO, ANEXSIA 5/325MG TABLET (HYDROcodone/ACETAMINOPHEN) As Ordered ONE; +TRIAMCINOLONE ACETONIDE SUSP 40 MG/ML VIAL (J3301) As Ordered ONE; +diazePAM 5MG TABLET As Ordered ONE; +diphenhydrAMINE 25MG CAP As Ordered ONE
== END ==
LOC: M PAIN 08:30
PROVIDERS: ATTEND Anesthesiology
DX: M79.18 Myalgia, other site (principal); F41.9 Anxiety disorder, unspecified; F32.9 Major depressive disorder, single episode, unspecified; G43.909 Migraine, unspecified, not intractable, without status migrainosus; F43.10 Post-traumatic stress disorder, unspecified; G47.30 Sleep apnea, unspecified; N30.20 Other chronic cystitis without hematuria; Z79.899 Other long term (current) drug therapy
CPT/HCPCS: 20553; J3301

== ENCOUNTER → 2021-01-18 | Outpatient (CLI) | payer OTHER ==
[~2021-01-18] MED LIST changes: -BUPIVACAINE HCL 0.25% 10ML VIAL As Ordered ONE; -BUPIVACAINE HCL 0.25% 30ML VIAL As Ordered ONE; -NORCO, ANEXSIA 5/325MG TABLET (HYDROcodone/ACETAMINOPHEN) As Ordered ONE; -TRIAMCINOLONE ACETONIDE SUSP 40 MG/ML VIAL (J3301) As Ordered ONE; -diazePAM 5MG TABLET As Ordered ONE; -diphenhydrAMINE 25MG CAP As Ordered ONE
== END ==
LOC: M PAIN 09:00
PROVIDERS: ATTEND Anesthesiology
DX: G89.29 Other chronic pain (principal); M79.18 Myalgia, other site; M54.2 Cervicalgia; F41.9 Anxiety disorder, unspecified; F32.9 Major depressive disorder, single episode, unspecified; G43.909 Migraine, unspecified, not intractable, without status migrainosus; F43.10 Post-traumatic stress disorder, unspecified; N30.20 Other chronic cystitis without hematuria; G47.30 Sleep apnea, unspecified; Z79.899 Other long term (current) drug therapy

== ENCOUNTER → 2021-03-18 | Outpatient (CLI) | payer OTHER ==
--- NOTE | 2021-03-18 10:02 | REP ---
INDICATION: SCREEN MAMMO. COMPARISON: Multiple prior screening examinations, the most recent, TECHNIQUE: Digital screening (2D) mammography was performed bilaterally in the CC and MLO projections. Additionally, breast tomosynthesis (3D mammography) was performed bilaterally in the CC and MLO projections. Supplemental anterior compression of the breast in the MLO orientation and implant displaced views in the CC and MLO orientations were performed. FINDINGS: By history, the patient has no complaints of a palpable breast abnormality or other significant breast complaints. The Volpara volumetric breast density pattern is B, there are scattered areas of fibroglandular density. There are bilateral retropectoral silicone breast implants. There are no suspicious calcifications, suspicious masses or areas of architectural distortion in either breast. IMPRESSION: BIRADS/ACR : Category 2: Benign finding. This patient's Tyrer-Cuzick lifetime breast cancer risk assessment score is 16.3%. This mammogram was interpreted with the aid of an FDA-approved computer-aided detection system. The patient states she had a clinical breast exam in June 2020. The patient letter being requested is M2. RECOMMENDATION: Repeat screening mammography recommended 1 year (for women over 40). <Electronically signed by Earnest Brar > 03/18/21 0951
== END ==
LOC: M WHC 07:49
PROVIDERS: ATTEND Physician Assistant Medical
DX: Z12.31 Encounter for screening mammogram for malignant neoplasm of breast (principal)

== ENCOUNTER → 2021-12-05 | Outpatient (CLI) | payer OTHER | LOC: M LABSMTC 10:22 | PROVIDERS: ATTEND Anesthesiology | DX: Z11.52 Encounter for screening for COVID-19 (principal) ==

== ENCOUNTER → 2022-04-25 | Outpatient (CLI) | payer OTHER | LOC: M WHC 07:07 | PROVIDERS: ATTEND Physician Assistant Medical | DX: Z12.31 Encounter for screening mammogram for malignant neoplasm of breast (principal) ==

== ENCOUNTER → 2022-11-19 | Outpatient (REF) | payer OTHER ==
[2022-11-19 23:04] LABS: GC DNA AMPLIFICATION NEGATIVE (NEGATIVE)
== END ==
LOC: M LAB REF 21:05
PROVIDERS: ATTEND Nurse Practitioner Family
DX: R30.0 Dysuria (principal); Z11.3 Encounter for screening for infections with a predominantly sexual mode of transmission

== ENCOUNTER → 2023-05-01 | Outpatient (CLI) | payer OTHER | LOC: M WHC 13:59 | PROVIDERS: ATTEND Internal Medicine | DX: Z53.9 Procedure and treatment not carried out, unspecified reason (principal) ==

== ENCOUNTER → 2023-05-28 | Outpatient (REF) | payer OTHER | LOC: M SFHCWAGY 08:58 | PROVIDERS: ATTEND Nurse Practitioner Family | DX: Z12.4 Encounter for screening for malignant neoplasm of cervix (principal) | CPT/HCPCS: 87624; G0123 ==

== ENCOUNTER → 2023-08-26 | Outpatient (REF) | payer OTHER ==
[2023-08-26 21:52] LABS: Trichomonas vaginalis (AMP) NOT DETECTED (NEGATIVE)
[2023-08-26 22:16] LABS: GC DNA AMPLIFICATION NEGATIVE (NEGATIVE)
[2023-08-27 12:54] LABS: Trichomonas vaginalis (AMP) NOT DETECTED (NEGATIVE)
[2023-08-27 13:18] LABS: GC DNA AMPLIFICATION NEGATIVE (NEGATIVE)
== END ==
LOC: M WUC 19:30
PROVIDERS: ATTEND Physician Assistant
DX: N76.0 Acute vaginitis (principal)